=== PATIENT | female | born 1965 | race Caucasian/White ===

== ENCOUNTER 2021-11-11 05:20 | Day surgery (SDC) | payer MEDICAID, SELFPAY ==
[~2021-11-11] VITALS: Ht 165.1 cm; Wt 99.8 kg
[2021-11-11] MEDS ORDERED: MIDAZOLAM HCL 5 MG/5 ML VIAL ONE (06:42)
[2021-11-11] MEDS ORDERED: MEPERIDINE 100 MG INJ. 100 MG/ML VIAL ONE (06:42)
[2021-11-11] MEDS ORDERED: SIMETHICONE 40 MG/0.6 ML ML ONE (06:42)
[2021-11-11] MEDS ORDERED: fentaNYL CITRATE/PF 100 MCG/2 ML AMP ONE (07:40)
[2021-11-12 06:40] VITALS: BP_SYST 173
== END 2021-11-11 09:05 | disposition home or self-care (01) ==
LOC: SDS 05:20 → SMU 05:20 → SDS 09:05
PROVIDERS: ATTEND Internal Medicine Gastroenterology
DX: Z12.11 Encounter for screening for malignant neoplasm of colon (principal); K64.8 Other hemorrhoids; Z79.899 Other long term (current) drug therapy; Z20.822 Contact with and (suspected) exposure to COVID-19
CPT/HCPCS: 36415; 45378; 87426; 99152; G0378; J2250; J3010; J2175